=== PATIENT | male | born 1965 | race African-American/Black ===

== ENCOUNTER 2017-02-08 12:48 | Inpatient (IN) | payer OTHER ==
[2017-02-08] MEDS ORDERED: NORVASC 5 MG TAB5 MG PO (18:21)
[2017-02-08] MEDS ORDERED: TYLENOL 325MG325 MG PO (18:22)
[2017-02-08] MEDS ORDERED: PROVENTIL HFA 61 INH INH (18:24)
[2017-02-08] MEDS ORDERED: ASPIRIN EC81 MG PO (18:24)
[2017-02-08] MEDS ORDERED: LIPITOR TAB 2020 MG PO (18:25)
[2017-02-08] MEDS ORDERED: COLACE 100MG C100 MG PO (18:27)
[2017-02-08] MEDS ORDERED: FIBER LAX625 MG PO (18:27)
[2017-02-08] MEDS ORDERED: HYDROCHLOROTHIA25 MG PO (18:27)
[2017-02-08] MEDS ORDERED: IMDUR ER TAB 3030 MG PO (18:28)
[2017-02-08] MEDS ORDERED: OMEPRAZOLE40 MG PO (18:29)
[2017-02-08] MEDS ORDERED: METOPROLOL TART50 MG PO (18:29)
[2017-02-08] MEDS ORDERED: ZANTAC150 MG PO (18:30)
[2017-02-10 04:19] LABS: HEMOGLOBIN 12.2 gm/dl (14.0-17.5); RED BLOOD COUNT 5.39 M/UL (4.20-5.50); WHITE BLOOD COUNT 7.7 K/UL (4.5-11.0)
[2017-02-10 04:44] LABS: BUN/CREATININE RATIO 18 (0-10)
== END 2017-02-10 11:30 | DRG 309 ==
LOC: PROG CARE 12:48 → CCU 17:23
PROVIDERS: Internal Medicine; ADMIT Hospitalist
PROC: 5A2204Z Restoration of Cardiac Rhythm, Single (ICD-10-PCS; principal; 2017-02-09)
PROC: B246ZZ4 Ultrasonography of Right and Left Heart, Transesophageal (ICD-10-PCS; 2017-02-09)
DX: I48.91 Unspecified atrial fibrillation (principal); I25.110 Atherosclerotic heart disease of native coronary artery with unstable angina pectoris; I10 Essential (primary) hypertension; E78.5 Hyperlipidemia, unspecified; J45.909 Unspecified asthma, uncomplicated; R00.1 Bradycardia, unspecified; K21.9 Gastro-esophageal reflux disease without esophagitis; K22.70 Barrett's esophagus without dysplasia; Z72.3 Lack of physical exercise; Z79.82 Long term (current) use of aspirin; Z79.1 Long term (current) use of non-steroidal anti-inflammatories (NSAID); Z79.899 Other long term (current) drug therapy; Z98.890 Other specified postprocedural states; Z82.49 Family history of ischemic heart disease and other diseases of the circulatory system; Z82.3 Family history of stroke; Z83.3 Family history of diabetes mellitus; Z84.1 Family history of disorders of kidney and ureter
CPT/HCPCS: 36415; 80048; 82550; 82553; 82962; 84484; 85027; 93005; 93312; 93320; 94640; 94664; J1650; J2250; J3010; J7030